=== PATIENT | male | born 1975 | race Caucasian/White ===

== ENCOUNTER 2016-05-17 19:07 | Emergency (ER) | payer BC ==
--- NOTE | 2016-05-17 19:11 | PDOC ---
History of Present Illness - General History Source: Patient Exam Limitations: No Limitations - History of Present Illness Initial Comments: 05/17/16 19:25 The patient is a 40 year old male with no significant past medical history, who presents to the ED with pain/swelling in his left foot radiating to the mid- calf for the past 5 days. Patient states he is ambulatory but with struggle. He denies SOB, fever, chills, nausea, vomiting, diarrhea. He was in [place] and came back yesterday via plane ride. PAST MEDICAL HISTORY: no significant history PAST SURGICAL HISTORY: no significant history FAMILY HISTORY: no pertinent history SOCIAL HISTORY: Pt lives with family and is employed. MEDICATIONS: reviewed ALLERGIES: As per nursing notes ROS: General: No fevers or chills, no weakness, no weight loss HEENT: No change in vision. No sore throat,. No ear pain CardioVascular: No chest pain or shortness of breath Respiratory:No cough, or wheezing. Gastrointestinal: no nausea, vomiting, diarrhea or constipation, No rectal bleeding Genitourinary: No dysuria, hematuria, or frequency Musculoskeletal: + pain and swelling to the left foot. Neurologic: No headache, vertigo, dizziness or loss of consciousness Psychiatric: nor depression Skin: No rashes or easy bruising Endocrine: no increased thirst or abnormal weight change Allergic: no skin or latex allergy All other systems reviewed and normal EXAM: General: Well-nourished well-developed individual, no acute distress HEENT: Throat: Normal, tonsils normal, no erythema or exudate Neck: Supple, no meningeal signs, no lymphadenopathy Eyes::Pupils equal reactive and round, extraocular motion intact Chest: Nontender to palpation Cardiac: S1-S2 normal, regular rate and rhythm, no murmurs rubs or gallops Respiratory: Lungs clear to auscultation bilateral Abdomen: Soft, nondistended, normal bowel sounds, nontender to palpation diffusely Extremities: Lower left extermity: mild nonpitting Edema to the knee. Question slight increase in warmth no erythema. Healed incision in the dorsum of the foot. No tender palpable cord in the inner thigh. Rest of extremities: Warm, dry, no cyanosis, clubbing, or edema Skin: No rashes Neuro: Alert and oriented x3, nonfocal exam, grossly intact, normal gait Psych: Normal mood and affect <Gino Nuno - Last Filed: 05/17/16 19:37> - General History Source: Patient Exam Limitations: No Limitations - History of Present Illness Initial Comments: 05/17/16 20:35 A portion of this note was documented by scribe services under my direction. I have reviewed the details of the note, within reason, and agree with the documentation. The case summary and management plan written by me. Assessment and plan: This is a 40-year-old male who comes in complaining of left lower extremity swelling and discomfort. Patient had a ultrasound Doppler that was negative for DVT. Patient is approximately 2 months postop. There was a slight increased in warmth but no appreciable erythema of the foot or leg. Patient had a CBC that was sent that was normal there was no white count or left shift. Patient reports no fevers and was afebrile here in the emergency room. Patient will be started on clindamycin to cover for MRSA and was referred back to his orthopedist in the morning. <Kasie Glaser I - Last Filed: 05/17/16 20:46> - General Chief Complaint: Pain, Acute Stated Complaint: SWELLING/PAIN TO LEFT FOOT/POST SURGERY Time Seen by Provider: 05/17/16 19:10 Past History <Gino Nuno - Last Filed: 05/17/16 19:37> - Past Medical History GI Disorders: Yes HTN: Yes Psychiatric Problems: Yes - Psycho/Social/Smoking Cessation Hx Anxiety: No Suicidal Ideation: No Smoking History: Never smoked Have you smoked in the past 12 months: No Hx Alcohol Use: No Drug/Substance Use Hx: No <Kasie Glaser I - Last Filed: 05/17/16 20:46> - Past Medical History Allergies/Adverse Reactions: Allergies Allergy/AdvReac Type Severity Reaction Status Date / Time morphine Allergy Severe Verified 05/17/16 19:09 Sulfa (Sulfonamide Allergy Verified 05/17/16 19:09 Antibiotics) codeine AdvReac Verified 05/17/16 19:09 Home Medications: Ambulatory Orders Amlodipine Besylate [Norvasc -] 5 mg PO DAILY 04/18/16 Escitalopram Oxalate [Lexapro -] 20 mg PO DAILY 04/18/16 Pantoprazole Sodium [Protonix] 40 mg PO DAILY 03/12/17 Clindamycin [Cleocin -] 300 mg PO Q6HPO #28 capsule 05/17/16 Review of Systems - Review of Systems Able to Perform ROS?: Yes <Gino Nuno - Last Filed: 05/17/16 19:37> *Physical Exam - Vital Signs Last Vital Signs Temp Pulse Resp BP Pulse Ox 98.3 F 91 H 16 148/92 98 05/17/16 19:12 05/17/16 19:12 05/17/16 19:12 05/17/16 19:12 05/17/16 19:12 <Gino Nuno - Last Filed: 05/17/16 19:37> ED Treatment Course - LABORATORY CBC & Chemistry Diagram: 05/17/16 19:29 <Gino Nuno - Last Filed: 05/17/16 19:37> - LABORATORY CBC & Chemistry Diagram: 05/17/16 19:29 <Kaise Glaser I - Last Filed: 05/17/16 20:46> *DC/Admit/Observation/Transfer - Attestations Scribe Attestion: 05/17/16 19:32 Documentation prepared by Gino Nuno, acting as medical research scientist for Kasie Glaser MD. <Gino Nuno - Last Filed: 05/17/16 19:37> - Discharge Dispostion Admit: No <Kasie Glaser I - Last Filed: 05/17/16 20:46> Diagnosis at time of Disposition: Left leg cellulitis - Discharge Dispostion Disposition: HOME Condition at time of disposition: Stable - Prescriptions Prescriptions: Clindamycin [Cleocin -] 300 mg PO Q6HPO #28 capsule - Referrals Referrals: Ashley Cobos [Primary Care Provider] - - Patient Instructions Additional Instructions: Take clindamycin 1 tablet 4 times a day for the next 7 days. It is very important that you call your orthopedist in the morning and have your foot and leg reevaluated by the orthopedist. Return to the emergency department immediately with ANY new, persistent or worsening symptoms. Continue any medications as previously prescribed by your physician. You should follow up with your primary doctor as soon as possible regarding today's emergency department visit. . Please make sure your doctor reviews the results of your emergency evaluation. Thank you for coming to the Emergency Department today for your care. It was a pleasure to see you today. Please note that your evaluation is INCOMPLETE until you follow-up with your doctor.
[2016-05-17 19:17] VITALS: BP 148/92; PULSE 91; TEMP 98.3; BMI 29.2
[2016-05-17 19:48] LABS: BASOPHIL 1.2 % (0-2.0); EOSINOPHIL 0.7 % (0-4.5); MCH 29.8 pg (25.7-33.7); MCHC 33.8 g/dl (32.0-35.9); MEAN CELL VOLUME 88.2 fl (80-96); MEAN PLT VOLUME 8.6 fl (7.5-11.1); NEUTROPHILS 58.2 % (42.8-82.8); PLATELET COUNT 211 K/MM3 (134-434); RDW 13.2 % (11.9-15.9); WHITE BLOOD COUNT 5.1 K/mm3 (4.0-10.0)
[2016-05-17] MEDS ORDERED: CLINDAMYCIN HCL 150 MG CAPSULE (FP) PO ONE (20:37)
[2016-05-17] MEDS ORDERED: CLINDAMYCIN HCL 150 MG CAPSULE (FP) ONE (20:44)
== END 2016-05-17 20:50 | disposition home or self-care (01) ==
LOC: FER 19:07
DX: L03.116 Cellulitis of left lower limb (principal); I10 Essential (primary) hypertension; F99 Mental disorder, not otherwise specified
CPT/HCPCS: 36415; 85025; 87040; 93971-TC; 99282-25

== ENCOUNTER 2018-05-31 18:06 | Emergency (ER) | payer BC, OTHER ==
[2018-05-31 18:10] VITALS: BP 134/72; PULSE 85; TEMP 99.4; BMI 29.5
--- NOTE | 2018-05-31 18:42 | PDOC ---
Attending Attestation - Resident Resident Name: Shadi Pittman - ED Attending Attestation I have performed the following: I have examined & evaluated the patient, The case was reviewed & discussed with the resident, I agree w/resident's findings & plan, Exceptions are as noted
[2018-05-31] MEDS ORDERED: KETOROLAC TROMETHAMINE 30 MG/1 ML VIAL IVPUSH ONE (18:58)
[2018-05-31] MEDS ORDERED: KETOROLAC TROMETHAMINE 30 MG/1 ML VIAL ONE (18:59)
[2018-05-31 19:24] LABS: HEMOGLOBIN 12.7 GM/dl (11.7-16.9); MEAN PLT VOLUME 8.5 fl (7.5-11.1); WHITE BLOOD COUNT 5.4 K/mm3 (4.0-10.8)
[2018-05-31 19:25] LABS: ALBUMIN 4.2 g/dl (3.4-5.0); ALK PHOS 87 U/L (45-117); ANION GAP 7 MMOL/L (8-16); BILIRUBIN,TOTAL 0.9 mg/dl (0.2-1); BLOOD UREA NITROGEN 16 mg/dl (7-18); CALCIUM 9.1 mg/dl (8.5-10); CHLORIDE 103 mmol/L (98-107); CO2 29 mmol/L (21-32); CREATININE 0.9 mg/dl (0.55-1.3); GLUCOSE,RANDOM 87 mg/dl (74-106); POTASSIUM 3.4 mmol/L (3.5-5.1); SGOT/AST 24 U/L (15-37); SGPT/ALT 30 U/L (13-61); SODIUM 139 mmol/L (136-145); TOT PROT 7.6 g/dl (6.4-8.2)
[2018-05-31 19:26] LABS: BASO % 0.1 % (0-2.0); EOS % 0.5 % (0-4.5); HEMATOCRIT 37.7 % (35.4-49); LYMPH % 25.8 % (8-40); MCH 30.1 pg (25.7-33.7); MCHC 33.6 g/dl (32.0-35.9); MEAN CELL VOLUME 89.7 fl (80-96); MONO % 11.6 % (3.8-10.2); PLATELET COUNT 238 K/MM3 (134-434); RDW 12.9 % (11.9-15.9)
--- NOTE | 2018-05-31 19:53 | PDOC ---
*Physical Exam - Vital Signs Last Vital Signs Temp Pulse Resp BP Pulse Ox 99.4 F 85 18 134/72 100 05/31/18 18:06 05/31/18 18:06 05/31/18 18:06 05/31/18 18:06 05/31/18 18:06 ED Treatment Course - LABORATORY CBC & Chemistry Diagram: 05/31/18 18:48 05/31/18 18:48 - ADDITIONAL ORDERS Additional order review: Laboratory Results 05/31/18 18:48 Sodium 139 Potassium 3.4 L Chloride 103 Carbon Dioxide 29 Anion Gap 7 L BUN 16 Creatinine 0.9 Creat Clearance w eGFR 91.67 Random Glucose 87 Calcium 9.1 Total Bilirubin 0.9 AST 24 ALT 30 Alkaline Phosphatase 87 Total Protein 7.6 Albumin 4.2 05/31/18 18:48 RBC 4.20 MCV 89.7 MCHC 33.6 RDW 12.9 MPV 8.5 Neutrophils % 62.0 Lymphocytes % 25.8 Monocytes % 11.6 H Eosinophils % 0.5 Basophils % 0.1 - Medications Given in the ED: ED Medications Discontinued Medications Generic Name Dose Route Start Last Admin Trade Name Freq PRN Reason Stop Dose Admin Ketorolac Tromethamine 30 mg 05/31/18 18:58 05/31/18 19:01 Toradol Injection - IVPUSH 05/31/18 18:59 30 mg ONCE ONE Administration Progress Note - Progress Note Progress Note: Care of this patient was transferred to nm from Dr. Nolasco at 1900 hrs. Patient is a 42-year-old male with arthralgias. Patient has a basic workup including a sedimentation rate. 19:45 Patient's workup was unremarkable including normal white count and normal differential and normal chemistries. Patient's sedimentation rate is still pending. A sedimentation rate does take quite a while to come back so patient expressed that he would like to leave and will call for the result of the sedimentation rate. Patient was advised that if symptoms persist that he should follow-up with a primary care doctor and in the meantime take an anti-inflammatory such as ibuprofen or Aleve for the pain *DC/Admit/Observation/Transfer Diagnosis at time of Disposition: Arthralgia Qualifiers: Joint pain location: unspecified Qualified Code(s): M25.50 - Pain in unspecified joint - Discharge Dispostion Disposition: HOME Condition at time of disposition: Stable Decision to Admit order: No - Referrals - Patient Instructions Additional Instructions: Take Aleve 2 tablets twice a day. Titer will not be back for several days so follow-up with your doctor and have your doctor check the results of your Lyme titer. You can call the ED tomorrow morning for the result of your sedimentation rate if it is markedly elevated you should follow up with your primary care doctor as soon as possible for further evaluation and workup of your joint pain. Return to the emergency department immediately with ANY new, persistent or worsening symptoms. Continue any medications as previously prescribed by your physician. You should follow up with your primary doctor as soon as possible regarding today's emergency department visit. . Please make sure your doctor reviews the results of your emergency evaluation. Thank you for coming to the Emergency Department today for your care. It was a pleasure to see you today. Please note that your evaluation is INCOMPLETE until you follow-up with your doctor. - Post Discharge Activity
--- NOTE | 2018-06-03 14:08 | PDOC ---
Documentation entered by Abram Bedoya SCRIBE, acting as scribe for Alex Alfaro MD. Alex Biggs MD: This documentation has been prepared by the Elke whiteside Juan Manue, SCRIBE, under my direction and personally reviewed by me in its entirety. I confirm that the documentation accurately reflects all work, treatment, procedures, and medical decision making performed by me. Attending Attestation - Resident Resident Name: Shadi Pittman - HPI HPI: 05/31/18 18:44 The patient is a 42 year old male, with significant past medical history HTN, hypothrdiusn and GERD, who presents to the ED complaining of joint pain. He notes joint pain in his left ring finger and right knee. He also reports swelling on the left ring finger. He notes that he took toradol last night, which helped relief his symptoms mildly. Today he has not taken any medications. He states that his pain is a 10/10 in severity and has been limping. He also reports fever and chills associated with his chief complaint. He states that he was worked up last year for Lyme disease as he had similar symptoms. He was also recently worked up for STDs which were negative. He stopped taking a weight loss drug last week which was prescribed by his PMD but denies any alleviation of his symptoms. The patient denies chest pain, shortness of breath, headache and dizziness. Denies nausea, vomiting, diarrhea or constipation. Allergies: Morphine, codeine and sulfa Past surgical history: None reported Social History: No alcohol, tobacco or drug use reported Of additional note is that the patient recently traveled to [place] but suffered no known illnesses there. - Physicial Exam PE: 05/31/18 18:44 Alert, oriented. No acute distress. Head: Normocephalic. Atraumatic Eyes: PERRL. EOMI. Conjunctivae are not pale. ENT: Mucous membranes are moist and intact. Posterior pharynx without exudates or erythema. Uvula midline. No nasal congestion Neck: Supple. Full ROM. No lymphadenopathy. Cardiovascular: Regular rate. Regular rhythm. S1, S2 regular. Distal pulses are 2+ and symmetric. Pulmonary/Chest: No evidence of respiratory distress. Clear to auscultation bilaterally No wheezing, rales or rhonchi. Abdominal: Soft and non-distended. There is no tenderness. No rebound, guarding or rigidity. No organomegaly. No palpable masses. Good bowel sounds. Back: No CVA tenderness. Ext: Right third finger. Mild swelling of the PIPJ. Stiffness is present with limited flexion. No erythema or warmth. No palpable effusion. Capillary refill intact. No distal sensory deficits. Right knee: No deformity, swelling, effusion, erythema, or warmth. No point tenderness. No ligament stress tenderness or laxity. Subjective stiffness with pain, difficulty flexing completely. Extension is complete. No other joints seem to be inflamed. Skin: Skin is warm and dry. No petechiae. No purpura. No other rash visible or palpable Neurological: Alert and oriented to person, place, and time. Cranial nerves II -XII are grossly intact. Normal speech. Strength is grossly symmetric. No sensory deficits. Psychiatric: Good eye contact. Normal interaction, affect and behavior. 06/03/18 14:15 - Medical Decision Making 06/03/18 14:19 Assessment: Arthralgias with her lack of physical findings. No fever. Most likely the result of a viral infection. Other considerations are limes, gonococcal disease, or less likely the first manifestation of rheumatoid arthritis, lupus, Jhoan syndrome, or dermatomyositis. Plan: Lyme titer, CBC, chemistries, and sedimentation rate. Symptomatic treatment with anti-inflammatories. 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
[2018-06-03 16:10] LABS: IgG Ab 23 kDa Band Absent (.); IgG Ab 28 kDa Band Absent (.)
== END 2018-05-31 20:05 | disposition home or self-care (01) ==
LOC: FER 18:06
PROC: 3E0333Z Introduction of Anti-inflammatory into Peripheral Vein, Percutaneous Approach (ICD-10-PCS; principal; 2018-05-31)
DX: M25.50 Pain in unspecified joint (principal); I10 Essential (primary) hypertension; E03.9 Hypothyroidism, unspecified; K21.9 Gastro-esophageal reflux disease without esophagitis
CPT/HCPCS: 36415; 80053; 85025; 85651; 86618; 99282-25

== ENCOUNTER 2021-01-28 15:33 | Emergency (ER) | payer BC, OTHER ==
[2021-01-28] MEDS ORDERED: ACETAMINOPHEN 1000 MG/100 ML VIAL IVPB ONE (16:06)
[2021-01-28] MEDS ORDERED: FAMOTIDINE 20 MG/50 ML IVPB 20 MG/50 ML MG IVPB ONE ×2 (16:06→16:12)
[2021-01-28] MEDS ORDERED: MAG HYDROX/AL HYDROX/SIMETH 30 ML UNIT-DOSE CUP PO ONE (16:06)
[2021-01-28] MEDS ORDERED: MAG HYDROX/AL HYDROX/SIMETH 30 ML UNIT-DOSE CUP ONE (16:12)
[2021-01-28] MEDS ORDERED: ACETAMINOPHEN INJECTION 100 ML IVPB ONE (16:12)
[2021-01-28 16:58] VITALS: TEMP 98.6; BMI 27.8
[2021-01-28 17:05] LABS: ALBUMIN 4.2 g/dl (3.4-5.0); BILIRUBIN,TOTAL 0.5 mg/dl (0.2-1); CALCIUM 9.3 mg/dl (8.5-10); CREATININE 0.8 mg/dl (0.55-1.3); MAGNESIUM 1.8 mg/dL (1.8-2.4); TOT PROT 7.6 g/dl (6.4-8.2)
[2021-01-28 18:54] LABS: BASO % 0.1 % (0-2.0); HEMATOCRIT 43.9 % (35.4-49); HEMOGLOBIN 14.4 GM/dL (11.7-16.9); LYMPH % 7.6 % (8-40); MCH 30.1 pg (25.7-33.7); MCHC 32.8 g/dl (32.0-35.9); MEAN CELL VOLUME 91.9 fl (80-96); MEAN PLT VOLUME 8.5 fl (7.5-11.1); MONO % 12.7 % (3.8-10.2); NEUT % 79.6 % (42.8-82.8); PLATELET COUNT 313 10^3/uL (134-434); RBC 4.78 M/mm3 (4.00-5.60); RDW 14.8 % (11.9-15.9); WHITE BLOOD COUNT 9.8 K/mm3 (4.0-10.0)
[2021-01-28 19:09] VITALS: BP 140/74; PULSE 77
== END 2021-01-28 20:40 | disposition home or self-care (01) ==
LOC: FER 15:33
PROC: 3E033NZ Introduction of Analgesics, Hypnotics, Sedatives into Peripheral Vein, Percutaneous Approach (ICD-10-PCS; principal; 2021-01-28)
PROC: 3E033GC Introduction of Other Therapeutic Substance into Peripheral Vein, Percutaneous Approach (ICD-10-PCS; 2021-01-28)
DX: R07.9 Chest pain, unspecified (principal)
CPT/HCPCS: 36415; 71046-TC-FY; 80053; 82550; 82553; 83690; 83735; 84484; 85025; 93005; 99284-25; J0131

== ENCOUNTER 2024-06-03 19:56 | Emergency (ER) | payer BC ==
[2024-06-03 20:15] VITALS: BP 135/72; PULSE 80; RESP 16; TEMP 99; BMI 28.4
[2024-06-03] MEDS ORDERED: IBUPROFEN 600 MG TABLET (FP) PO ONE (20:40)
[2024-06-03] MEDS: IBUPROFEN 600 MG TABLET (FP) PO ONE (20:43)
[2024-06-03] MEDS ORDERED: AZITHROMYCIN 500 MG TABLET ONE (20:53)
[2024-06-03] MEDS: AZITHROMYCIN 500 MG TABLET PO ONE (20:58)
== END 2024-06-03 21:30 | disposition home or self-care (01) ==
LOC: FER 19:56
DX: J18.9 Pneumonia, unspecified organism (principal); R07.89 Other chest pain
CPT/HCPCS: 0241U-QW; 71046-TC-FY; 93005; 99285-25